=== PATIENT | female | born 1990 | race Caucasian/White ===

== ENCOUNTER → 2017-04-02 | Outpatient (CLI) | payer BC ==
[~2017-04-02] MED LIST: IBUP-1773 PO; PREN1TAB19 PO
--- NOTE | 2017-04-02 15:50 | Diagnostic Imaging Report ---
INDICATION: survey. TECHNIQUE: Multiple real-time grayscale images were obtained over the gravid uterus. COMPARISON: None FINDINGS: Cervix is nondilated measuring 5.7 cm in length. A fontenot gestation is in transverse position, the head to the maternal right. The posterior placenta appeared unremarkable. There was no abruption or previa. heart rate regular at 156 beats per minute. No pathological finding at the anatomical survey is apparent however positioning limits visualization of the spine and limits visualization of the cord insertion. Measurements correlate with an age 20 weeks 0 days, reflecting normal growth from prior. IMPRESSION: Fontenot gestation measuring 20 weeks 0 days, nondilated 5.7 cm length cervix with normal volume of amniotic fluid. No pathological finding revealed however anatomical survey limited owing to positioning, as described. Biometrical measurements are as follows: Biparietal 4.7 cm, age 20 weeks 1 days. Head circumference 17.4 cm, age 20 weeks 0 days. Abdominal circumference 14.6 cm, age 20 weeks 0 days. Femur length 3.2 cm, age 19 weeks 6 days. Sonographic estimate age: 20 weeks 0 days. Sonographic estimated date of delivery: 08/20/17. Estimated Weight: 319 gm (+/- 11 gm). LMP percentile: 39%. heart rate: 156 beats per minute. number: 1 of 1. Dictated by: Dictated on workstation # [id number]
== END ==
LOC: RAD 13:00
PROVIDERS: ATTEND Obstetrics & Gynecology
DX: Z36 Encounter for antenatal screening of mother (principal); Z3A.20 20 weeks gestation of pregnancy
CPT/HCPCS: 76805

== ENCOUNTER 2017-08-23 19:50 | Outpatient (CLI) | payer BC ==
[~2017-08-23] VITALS: Ht 157.5 cm; Wt 115.4 kg
[2017-08-23 20:00] VITALS: BP 134/87
[2017-08-23 20:24] LABS: BILIRUBIN,URINE NEGATIVE (NEGATIVE); KETONES,URINE 3+ (NEGATIVE); LEUKOCYTE ESTERASE ,URINE 1+ (NEGATIVE); NITRITE,URINE NEGATIVE (NEGATIVE); PH,URINE 6 (5-9); PROTEIN,URINE 2+ (NEGATIVE); UROBILINOGEN,URINE NORMAL (NORMAL)
[2017-08-23 20:46] LABS: SQUAMOUS EPITHELIAL CELL,UR 25-50 /HPF
--- NOTE | 2017-08-24 12:14 | Physician Query-Final Dx ---
OSCAR BE 08/24/17 1214: Clinic Account Progress/Dx Physician Query: Please give diagnosis Date of Service Aug 23, 2017 at 19:50 PRESTON BOWIE DO 08/24/17 2222: Clinic Account Progress/Dx DIAGNOSIS: Diagnosis Threatened labor at term Non stress test OSCAR BE Aug 24, 2017 12:14 PRESTON BOWIE DO Aug 24, 2017 22:22
== END 2017-08-23 20:45 | disposition home or self-care (01) ==
LOC: WSo 19:50 → LDRP 19:50 → WSo 20:03
PROVIDERS: ATTEND Obstetrics & Gynecology
DX: O47.1 False labor at or after 37 completed weeks of gestation (principal); Z3A.40 40 weeks gestation of pregnancy
CPT/HCPCS: 81000; 87088; 99212

== ENCOUNTER 2017-08-24 18:07 | Inpatient (IN) | payer BC ==
[2017-08-24] VITALS (24 sets, daily range): BP systolic 90–196; BP diastolic 55–91
[~2017-08-24] VITALS: Ht 157.5 cm; Wt 110.2 kg
[2017-08-24] MEDS ORDERED: D5 LR IV SOLUTION 1,000 ML IV SCH (18:19)
[2017-08-24] MEDS ORDERED: MINERAL OIL CONCENTRATE 99.9% 15 ML UDC TOP PRN (18:30)
[2017-08-24 18:35] LABS: BILIRUBIN,URINE NEGATIVE (NEGATIVE); KETONES,URINE 4+ (NEGATIVE); LEUKOCYTE ESTERASE ,URINE 1+ (NEGATIVE); NITRITE,URINE NEGATIVE (NEGATIVE); PH,URINE 6.5 (5-9); PROTEIN,URINE 2+ (NEGATIVE); UROBILINOGEN,URINE 1 MG/DL (NORMAL)
[2017-08-24 18:42] LABS: SQUAMOUS EPITHELIAL CELL,UR RARE /HPF
[2017-08-24 18:59] LABS: BASOPHILS % (AUTO) 0 % (0-10); EOSINOPHILS # (AUTO) 0.1 10^3/uL (0.0-0.3); EOSINOPHILS % (AUTO) 1 % (0-10); LYMPHOCYTES # (AUTO) 1.9 X 10^3 (1.0-4.0); LYMPHOCYTES % (AUTO) 16 % (12-44); MEAN CORPUSCULAR HEMOGLOBIN 26 PG (25-34); MEAN CORPUSCULAR HGB CONC 33 G/DL (32-36); MEAN CORPUSCULAR VOLUME 80 FL (80-99); MEAN PLATELET VOLUME 10.9 FL (7.4-10.4); MONOCYTES # (AUTO) 0.8 X 10^3 (0.0-1.0); MONOCYTES % (AUTO) 7 % (0-12); NEUTROPHILS # (AUTO) 9.3 X 10^3 (1.8-7.8); NEUTROPHILS % (AUTO) 76 % (42-75); PLATELET COUNT 260 10^3/uL (130-400); RED BLOOD COUNT 4.26 10^6/uL (4.35-5.85); RED CELL DISTRIBUTION WIDTH 15.9 % (10.0-14.5); WHITE BLOOD COUNT 12.1 10^3/uL (4.3-11.0)
[2017-08-24] MEDS ORDERED: INFLUENZA TRIvalent 2017-2018 0.5 ML/45 MCG SYR IM ONE (19:15)
[2017-08-24] MEDS ORDERED: LIDOCAINE/EPI 2% 1:200,00 (XYLOCAINE) 10 ML VIAL ONE (19:55)
[2017-08-24] MEDS ORDERED: SUFENTA 0.6MCG/ML BUPIVA 0.125 100 ML ONE (19:55)
[2017-08-24] MEDS ORDERED: fentaNYL INJECTION 100 MCG/2 ML AMP IVP PRN (20:00)
[2017-08-24] MEDS ORDERED: BUPIVACAINE 0.25% 30 ML (SENSORCAINE) VIAL ONE (20:34)
[2017-08-24] MEDS ORDERED: LACTATED RINGERS 1,000 ML IV ONE (21:19)
[2017-08-24] MEDS ORDERED: EPIDURAL (SUFENTA 0.6MCG/ML BUPIVA 0.125%) 100 ML BAG EPI SCH (21:30)
[2017-08-24] MEDS ORDERED: ONDANSETRON 4 MG/2 ML (SDV) Z0FRAN IV PRN (21:30)
[2017-08-24] MEDS ORDERED: NALOXONE 0.4 MG/ML 1 ML (NARCAN) VIAL IV PRN (21:30)
[2017-08-24] MEDS ORDERED: OXYTOCIN/NORMAL SALINE 500 ML IV ONE (21:31)
[2017-08-24] MEDS ORDERED: CATHETER FLUSH 10 ML SYR IV SCH (22:00)
[2017-08-24] MEDS ORDERED: OXYTOCIN/NORMAL SALINE 500 ML IV SCH (22:13)
[2017-08-24] MEDS ORDERED: MEASLES,MUMPS,RUBELLA 1 EA INJ SQ ONE (22:15)
[2017-08-24] MEDS ORDERED: DIBUCAINE (NUPERCAINAL) 1% OINT 30 GM TOP PRN (22:15)
[2017-08-24] MEDS ORDERED: TETANUS,DIPTH,PERTUSS P/F (BOOSTRIX) 0.5 ML VIAL IM ONE (22:15)
[2017-08-24] MEDS ORDERED: BENZOCAINE/MENTHOL (DERMOPLAST) 56 ML CAN TP PRN (22:15)
--- NOTE | 2017-08-24 22:18 | OB Labor & Delivery Record ---
Vag Delivery Note Vag Delivery Note Date of Delivery: 08/24/17 Preoperative Diagnosis: Anatoliy Clay is a 27 /Para 3/1 ,Gestational Age 40 4/7 weeks in labor Postoperative Diagnosis: Same Surgeon: PRESTON BOWIE Anesthesia: spinal Delivery Type: vaginal Findings: [] Viable female , apgars 9/9, weight pending Lacerations: perineal abrasion and anterior fornix abrasion, not repaired Intact placenta with 3 vessel cord. No nuchal cord, body cord or shoulder dystocia Estimated Blood Loss: 100 ml Complications: None Condition: Stable Description of Procedure: The patient is a 27 /Para 3/1 ,Gestational Age 40 4/7 weeks in labor. She was admitted and informed consent was obtained. Her labor course was remarkable for AROM at 10 cm. She progressed to complete dilatation and began to push. She was then set up for delivery. The infant's head was delivered atraumatically in the SONYA position. The shoulders and remainder of the infant's body were then delivered without difficulty. Upon delivery, the head was held below the level of the perineum and the mouth and nares were bulb suctioned. The cord was doubly clamped and cut and the infant was handed off to the pediatric staff. An intact placenta with 3-vessel cord delivered via Vandana and there was found to be minimal bleeding.~ Vigorous fundal massage was performed and the fundus was found to be firm. IV oxytocin was given. Examination of the vagina and perineum revealed a perineal abrasion not repaired. Following the delivery, sponge, instrument and needle counts were correct. Mom and baby were both in stable condition in the labor suite. Vitals - Labs Vital Signs - I&O Vital Signs Date Time Temp Pulse Resp B/P (MAP) Pulse Ox O2 Delivery O2 Flow Rate FiO2 08/24/17 18:00 97.2 101 18 137/70 Room Air Labs Laboratory Tests 08/24/17 18:10: Urine Color YELLOW, Urine Clarity CLEAR, Urine pH 6.5, Urine Specific [place] 1.015L, Urine Protein 2+H, Urine Glucose (UA) NEGATIVE, Urine Ketones 4+H, Urine Nitrite NEGATIVE, Urine Bilirubin NEGATIVE, Urine Urobilinogen 1, Urine Leukocyte Esterase 1+H, Urine RBC (Auto) NEGATIVE, Urine RBC NONE, Urine WBC 2-5 , Urine Squamous Epithelial Cells RARE, Urine Crystals NONE, Urine Bacteria NONE , Urine Casts NONE, Urine Mucus TRACE, Urine Culture Indicated NO 08/24/17 18:45: White Blood Count 12.1H, Red Blood Count 4.26L, Hemoglobin 11.1L, Hematocrit 34L , Mean Corpuscular Volume 80, Mean Corpuscular Hemoglobin 26, Mean Corpuscular Hemoglobin Concent 33, Red Cell Distribution Width 15.9H, Platelet Count 260, Mean Platelet Volume 10.9H, Neutrophils (%) (Auto) 76H, Lymphocytes (%) (Auto) 16, Monocytes (%) (Auto) 7, Eosinophils (%) (Auto) 1, Basophils (%) (Auto) 0, Neutrophils # (Auto) 9.3H, Lymphocytes # (Auto) 1.9, Monocytes # (Auto) 0.8, Eosinophils # (Auto) 0.1, Basophils # (Auto) 0.0 PRESTON BOWIE DO Aug 24, 2017 22:18
[2017-08-24] MEDS: IBUPROFEN 600 MG (MOTRIN) TAB PO SCH (22:21)
[2017-08-24] MEDS: ACETAMINOPHEN 500 MG TAB (TYLENOL) PO PRN (22:26)
[2017-08-24] MEDS: WITCH HAZEL(TUCKS) 40 EA JAR TOP PRN (23:45)
[2017-08-25 04:00] VITALS: BP 111/72
[2017-08-25] MEDS: IBUPROFEN 600 MG (MOTRIN) TAB PO SCH ×4 (04:00→23:28)
[2017-08-25] MEDS ORDERED: CATHETER FLUSH 10 ML SYR IV SCH (06:00)
[2017-08-25 07:21] LABS: BASOPHILS % (AUTO) 0 % (0-10); EOSINOPHILS % (AUTO) 0 % (0-10); LYMPHOCYTES % (AUTO) 15 % (12-44); MEAN CORPUSCULAR HEMOGLOBIN 26 PG (25-34); MEAN CORPUSCULAR HGB CONC 32 G/DL (32-36); MEAN CORPUSCULAR VOLUME 81 FL (80-99); MEAN PLATELET VOLUME 10.7 FL (7.4-10.4); MONOCYTES % (AUTO) 7 % (0-12); NEUTROPHILS # (AUTO) 10.9 X 10^3 (1.8-7.8); NEUTROPHILS % (AUTO) 78 % (42-75); PLATELET COUNT 226 10^3/uL (130-400); RED BLOOD COUNT 3.92 10^6/uL (4.35-5.85); RED CELL DISTRIBUTION WIDTH 15.7 % (10.0-14.5)
--- NOTE | 2017-08-25 07:54 | Postpartum Progress Note ---
Note Note Day # 1 s/p Subjective: Patient is without complaints. Ambulating, voiding. Tolerating a regular diet without nausea or vomiting. Normal lochia. Pain is well controlled with oral pain medications. breast feeding. Objective: Laboratory Tests Test 08/24/17 18:10 08/24/17 18:45 08/25/17 07:08 Range/Units Urine Color YELLOW Urine Clarity CLEAR Urine pH 6.5 5-9 Urine Specific [place] 1.015 L 1.016-1.022 Urine Protein 2+ H NEGATIVE Urine Glucose (UA) NEGATIVE NEGATIVE Urine Ketones 4+ H NEGATIVE Urine Nitrite NEGATIVE NEGATIVE Urine Bilirubin NEGATIVE NEGATIVE Urine Urobilinogen 1 NORMAL MG/DL Urine Leukocyte Esterase 1+ H NEGATIVE Urine RBC (Auto) NEGATIVE NEGATIVE Urine RBC NONE /HPF Urine WBC 2-5 /HPF Urine Squamous Epithelial Cells RARE /HPF Urine Crystals NONE /LPF Urine Bacteria NONE /HPF Urine Casts NONE /LPF Urine Mucus TRACE /LPF Urine Culture Indicated NO White Blood Count 12.1 H 14.0 H 4.3-11.0 10^3/uL Red Blood Count 4.26 L 3.92 L 4.35-5.85 10^6/uL Hemoglobin 11.1 L 10.2 L 11.5-16.0 G/DL Hematocrit 34 L 32 L 35-52 % Mean Corpuscular Volume 80 81 80-99 FL Mean Corpuscular Hemoglobin 26 26 25-34 PG Mean Corpuscular Hemoglobin Concent 33 32 32-36 G/DL Red Cell Distribution Width 15.9 H 15.7 H 10.0-14.5 % Platelet Count 260 226 130-400 10^3/uL Mean Platelet Volume 10.9 H 10.7 H 7.4-10.4 FL Neutrophils (%) (Auto) 76 H 78 H 42-75 % Lymphocytes (%) (Auto) 16 15 12-44 % Monocytes (%) (Auto) 7 7 0-12 % Eosinophils (%) (Auto) 1 0 0-10 % Basophils (%) (Auto) 0 0 0-10 % Neutrophils # (Auto) 9.3 H 10.9 H 1.8-7.8 X 10^3 Lymphocytes # (Auto) 1.9 2.0 1.0-4.0 X 10^3 Monocytes # (Auto) 0.8 1.0 0.0-1.0 X 10^3 Eosinophils # (Auto) 0.1 0.0 0.0-0.3 10^3/uL Basophils # (Auto) 0.0 0.0 0.0-0.1 10^3/uL Vital Sign - Last 12Hours 08/24/17 08/24/17 08/24/17 08/24/17 20:27 20:30 20:33 20:36 Pulse 110 85 96 79 Resp 18 B/P (MAP) 135/69 135/76 141/80 128/82 Pulse Ox 100 100 100 100 08/24/17 08/24/17 08/24/17 08/24/17 20:39 20:42 20:45 20:48 Pulse 96 83 108 100 B/P (MAP) 130/80 128/69 129/79 196/87 Pulse Ox 100 97 97 98 08/24/17 08/24/17 08/24/17 08/24/17 20:51 20:54 20:57 21:00 Pulse 105 100 103 111 Resp 18 B/P (MAP) 144/76 151/81 172/91 117/74 Pulse Ox 100 100 99 99 08/24/17 08/24/17 08/24/17 08/24/17 21:06 21:09 21:12 21:15 Pulse 109 103 86 86 Resp 18 B/P (MAP) 102/63 104/60 109/55 115/59 Pulse Ox 100 100 100 08/24/17 08/24/17 08/24/17 08/24/17 21:30 21:45 22:12 22:42 Temp 98.0 98.2 97.9 Pulse 97 95 101 93 Resp 18 B/P (MAP) 110/66 90/57 122/68 125/73 08/24/17 08/24/17 08/24/17 08/25/17 22:57 23:12 23:27 04:00 Temp 97.3 97.4 98.1 Pulse 87 85 90 80 Resp 18 B/P (MAP) 125/71 125/77 124/73 111/72 Pulse Ox 98 Physical Exam: General - Alert and oriented, no apparent distress Abdomen - Soft, appropriately tender to palpation, non-distended, fundus firm at umbilicus Extremities - no edema, negative Jeanie's bilaterally Assessment: 1. post- day # 1, status post spontaneous vaginal delivery. Recovering well, hemodynamically stable 2. Acute blood loss anemia -stable Plan: Routine care. Encourage breast feeding. Encourage ambulation. Ferrous sulfate supplementation. Plan for discharge tomorrow Vitals - Labs Vital Signs - I&O Vital Signs Date Time Temp Pulse Resp B/P (MAP) Pulse Ox O2 Delivery O2 Flow Rate FiO2 08/25/17 04:00 98.1 80 18 111/72 98 08/24/17 23:27 97.4 90 124/73 08/24/17 23:12 85 125/77 08/24/17 22:57 97.3 87 125/71 08/24/17 22:42 97.9 93 125/73 08/24/17 22:12 98.2 101 122/68 08/24/17 21:45 95 90/57 08/24/17 21:30 98.0 97 18 110/66 08/24/17 21:15 86 18 115/59 100 08/24/17 21:12 86 109/55 08/24/17 21:09 103 104/60 100 08/24/17 21:06 109 102/63 100 08/24/17 21:00 111 18 117/74 99 08/24/17 20:57 103 172/91 99 08/24/17 20:54 100 151/81 100 08/24/17 20:51 105 144/76 100 08/24/17 20:48 100 196/87 98 08/24/17 20:45 108 129/79 97 08/24/17 20:42 83 128/69 97 08/24/17 20:39 96 130/80 100 08/24/17 20:36 79 128/82 100 08/24/17 20:33 96 141/80 100 08/24/17 20:30 85 18 135/76 100 08/24/17 20:27 110 135/69 100 08/24/17 19:30 97.6 08/24/17 18:00 97.2 101 18 137/70 Room Air Labs Laboratory Tests 08/24/17 18:10: Urine Color YELLOW, Urine Clarity CLEAR, Urine pH 6.5, Urine Specific [place] 1.015L, Urine Protein 2+H, Urine Glucose (UA) NEGATIVE, Urine Ketones 4+H, Urine Nitrite NEGATIVE, Urine Bilirubin NEGATIVE, Urine Urobilinogen 1, Urine Leukocyte Esterase 1+H, Urine RBC (Auto) NEGATIVE, Urine RBC NONE, Urine WBC 2-5 , Urine Squamous Epithelial Cells RARE, Urine Crystals NONE, Urine Bacteria NONE , Urine Casts NONE, Urine Mucus TRACE, Urine Culture Indicated NO 08/24/17 18:45: White Blood Count 12.1H, Red Blood Count 4.26L, Hemoglobin 11.1L, Hematocrit 34L , Mean Corpuscular Volume 80, Mean Corpuscular Hemoglobin 26, Mean Corpuscular Hemoglobin Concent 33, Red Cell Distribution Width 15.9H, Platelet Count 260, Mean Platelet Volume 10.9H, Neutrophils (%) (Auto) 76H, Lymphocytes (%) (Auto) 16, Monocytes (%) (Auto) 7, Eosinophils (%) (Auto) 1, Basophils (%) (Auto) 0, Neutrophils # (Auto) 9.3H, Lymphocytes # (Auto) 1.9, Monocytes # (Auto) 0.8, Eosinophils # (Auto) 0.1, Basophils # (Auto) 0.0 08/25/17 07:08: White Blood Count 14.0H, Red Blood Count 3.92L, Hemoglobin 10.2L, Hematocrit 32L , Mean Corpuscular Volume 81, Mean Corpuscular Hemoglobin 26, Mean Corpuscular Hemoglobin Concent 32, Red Cell Distribution Width 15.7H, Platelet Count 226, Mean Platelet Volume 10.7H, Neutrophils (%) (Auto) 78H, Lymphocytes (%) (Auto) 15, Monocytes (%) (Auto) 7, Eosinophils (%) (Auto) 0, Basophils (%) (Auto) 0, Neutrophils # (Auto) 10.9H, Lymphocytes # (Auto) 2.0, Monocytes # (Auto) 1.0, Eosinophils # (Auto) 0.0, Basophils # (Auto) 0.0 PRESTON BOWIE DO Aug 25, 2017 07:54
[2017-08-25] MEDS ORDERED: FERR-74 PO (08:01)
[2017-08-25] MEDS ORDERED: IBUP-1773 PO (08:01)
[2017-08-25] MEDS ORDERED: ACET-77 PO (08:01)
--- NOTE | 2017-08-25 08:03 | Discharge Inst-Women's Service ---
Discharge Inst-Women's Serv Depart Medication/Instructions New, Converted or Re-Newed RX: Call to Patients Pharmacy Instructions NOTHING IN VAGINA FOR 6 WEEKS Final Diagnosis LABOR MILD ANTEPARTUM AND ACUTE BLOOD LOSS ANEMIA Consults/Follow Up Additional Follow Up: Yes (6 WEEKS WITH AZEB/SIL) Activity Activity: Activity as Tolerated Driving Instructions: You May Drive NO SMOKING: NO SMOKING Nothing Inside Vagina: No Douching, No [place], No Tampons Diet Discharge Diet: No Restrictions Symptoms to Report to : Pain Increased, Fever Over 101 Degrees F, Vaginal Bleeding Increase, Cramps in Feet or Legs, Vaginal Discharge Foul For Any Problems or Questions: Contact Your Physician PRESTON BOWIE DO Aug 25, 2017 8:02 am
[2017-08-25] MEDS ORDERED: MEASLES,MUMPS,RUBELLA 1 EA INJ ONE (08:34)
[2017-08-25] MEDS ORDERED: TETANUS,DIPTH,PERTUSS P/F (BOOSTRIX) 0.5 ML VIAL IM ONE (08:34)
[2017-08-25 08:56] VITALS: BP 113/73
[2017-08-25] MEDS: PRENATAL VITAMIN 1 EA TAB PO SCH (08:58)
[2017-08-25] MEDS: DOCUSATE SODIUM 100 MG (COLACE) CAP PO SCH ×2 (08:58→21:24)
[2017-08-25] MEDS: FERROUS SULF 325 MG (IRON) TAB PO SCH (08:58)
[2017-08-25 13:46] VITALS: BP 112/69
--- NOTE | 2017-08-25 14:30 | Anesthesia-Regional Post-Op ---
Regional Patient Condition Mental Status: Alert, Oriented x3 Circulation: Same as Pre-Op Headache: Absent Sensation: Full Recovery Motor Block: Absent Post Op Complications Complications None Follow Up Care/Instructions Patient Instructions None needed. Anesthesia/Patient Condition Patient is doing well, no complaints, stable vital signs, no apparent adverse anesthesia problems. No complications reported per nursing. SHANTE WOOD CRNA Aug 25, 2017 14:30
[2017-08-25 16:50] VITALS: BP 116/77
[2017-08-25 20:00] VITALS: BP 116/75
[2017-08-26 02:00] VITALS: BP 116/66
[2017-08-26] MEDS: ACETAMINOPHEN 500 MG TAB (TYLENOL) PO PRN (03:17)
[2017-08-26] MEDS: PRENATAL VITAMIN 1 EA TAB PO SCH (06:02)
[2017-08-26] MEDS: IBUPROFEN 600 MG (MOTRIN) TAB PO SCH ×2 (06:02→12:42)
--- NOTE | 2017-08-26 08:24 | Postpartum Progress Note ---
Note Note Day # 2 Subjective: Patient is without complaints. Ambulating, voiding. Tolerating a regular diet without nausea or vomiting. Normal lochia. Pain is well controlled with oral pain medications. breast feeding Objective: Vital Sign - Last 12Hours 08/26/17 02:00 Temp 98.7 Pulse 84 Resp 18 B/P (MAP) 116/66 Pulse Ox 98 O2 Delivery Room Air Physical Exam: General - Alert and oriented, no apparent distress Abdomen - Soft, appropriately tender to palpation, non-distended, fundus firm at umbilicus Extremities - no edema, negative Jeanie's bilaterally Assessment: 1. post- day # 2, status post spontaneous vaginal delivery. Recovering well, hemodynamically stable 2. Acute blood loss anemia Plan: Routine care. Encourage breast feeding. Encourage ambulation. Ferrous sulfate supplementation. Plan for discharge today Vitals - Labs Vital Signs - I&O Vital Signs Date Time Temp Pulse Resp B/P (MAP) Pulse Ox O2 Delivery O2 Flow Rate FiO2 08/26/17 02:00 98.7 84 18 116/66 98 Room Air 08/25/17 20:00 99.5 88 17 116/75 97 Room Air 08/25/17 16:50 97.7 90 16 116/77 98 Room Air 08/25/17 13:46 97.6 85 18 112/69 97 Room Air 08/25/17 08:56 98.0 90 18 113/73 97 Room Air Labs Microbiology 08/24/17 Urine Culture - Preliminary, Resulted NO GROWTH PRESTON BOWIE DO Aug 26, 2017 08:24
[2017-08-26 09:30] VITALS: BP 118/78
[2017-08-26] MEDS: FERROUS SULF 325 MG (IRON) TAB PO SCH (09:30)
[2017-08-26] MEDS: DOCUSATE SODIUM 100 MG (COLACE) CAP PO SCH (09:30)
[2017-08-26 12:43] VITALS: BP 125/81
[2017-08-26] MEDS: WITCH HAZEL(TUCKS) 40 EA JAR TOP PRN (12:47)
[2017-08-26 13:30] VITALS: BP 125/81
== END 2017-08-26 13:30 | disposition home or self-care (01) | DRG 775 ==
LOC: WSo 18:07 → LDRP 18:07 → WSo 18:10 → LDRP 18:10
PROVIDERS: ADMIT Obstetrics & Gynecology; ATTEND Obstetrics & Gynecology
PROC: 10E0XZZ Delivery of Products of Conception, External Approach (ICD-10-PCS; principal; 2017-08-24)
DX: O48.0 Post-term pregnancy (principal); O99.013 Anemia complicating pregnancy, third trimester; D64.9 Anemia, unspecified; Z3A.40 40 weeks gestation of pregnancy; Z37.0 Single live birth
CPT/HCPCS: 36415; 81000; 85025; 87088; 90707; 90715; 99212

== ENCOUNTER → 2019-05-25 | Outpatient (CLI) | payer OTHER, MEDICAID ==
[~2019-05-25] MED LIST changes: +ACET-77 PO; +FERR325T18 PO
--- NOTE | 2019-05-25 16:36 | Diagnostic Imaging Report ---
INDICATION: , anatomic survey, gestational age of 20 weeks and 2 days. TECHNIQUE: Multiple real-time grayscale images were obtained over the gravid uterus. COMPARISON: None. FINDINGS: There is a single live intrauterine gestation in cephalic presentation. The placenta is anterior without evidence of previa. heart rate measures 136 bpm. Amniotic fluid appears subjectively normal. The cervix measures 4.0 cm, without funneling. The stomach is seen. The cervix measures 4.0 cm, without funneling. The kidneys are seen. The cord insertion is seen. A four-chambered heart is seen. The intracranial ventricles are seen. The cisterna magna is seen and the cerebellum is seen. The upper and lower spine is seen. The bladder is seen. Two uterine arteries are seen demonstrating a three-vessel cord. The maternal adnexa are not seen. Biometrical measurements are as follows: Biparietal 4.67 cm, age 20 weeks 1 day. Head circumference 17.01 cm, age 19 weeks 5 days. Abdominal circumference 15.67 cm, age 20 weeks 6 days. Femur length 3.07 cm, age 19 weeks 4 days. Sonographic estimate age: 20 weeks 1 day. Sonographic estimated date of delivery: 10/11/2019. Estimated Weight: 336 gm (+/- 49 gm). LMP percentile: 46%. heart rate: 136 beats per minute. number: One of one. IMPRESSION: 1. Single live intrauterine gestation measuring at 20 weeks and 1 day, which is within range of the clinical dates. heart rate and amniotic fluid appear normal. 2. Anatomic survey given above. No abnormalities are seen. Dictated by: Dictated on workstation # [id number]
== END ==
LOC: RAD 14:43
PROVIDERS: ATTEND Obstetrics & Gynecology
DX: Z34.92 Encounter for supervision of normal pregnancy, unspecified, second trimester (principal); Z3A.20 20 weeks gestation of pregnancy
CPT/HCPCS: 76805

== ENCOUNTER 2019-10-04 08:09 | Inpatient (IN) | payer OTHER, MEDICAID ==
[2019-10-04] VITALS (26 sets, daily range): BP systolic 94–140; BP diastolic 51–78
[~2019-10-04] VITALS: Ht 157.5 cm; Wt 107.2 kg
--- NOTE | 2019-10-04 08:09 | NUR ---
LAUREN ACOSTA presented to unit from home, accompanied by Significant Other, with c/o INDUCTION. LAUREN ACOSTA weighed, gowned, voided, and to bed. EFHM and TOCO applied, VS taken. LAUREN ACOSTA oriented to bed controls, call light, TV, heat, and A/C controls.
[2019-10-04] MEDS ORDERED: OXYTOCIN/NORMAL SALINE 500 ML IV SCH (08:19)
[2019-10-04] MEDS ORDERED: D5 LR IV SOLUTION 1,000 ML IV SCH (08:19)
[2019-10-04] MEDS ORDERED: MINERAL OIL CONCENTRATE 99.9% 15 ML UDC TOP PRN (08:30)
[2019-10-04 08:50] LABS: BASOPHILS % (AUTO) 0 % (0-10); EOSINOPHILS # (AUTO) 0.1 10^3/uL (0.0-0.3); EOSINOPHILS % (AUTO) 1 % (0-10); HEMATOCRIT 29 % (35-52); HEMOGLOBIN 9.1 G/DL (11.5-16.0); LYMPHOCYTES # (AUTO) 1.8 X 10^3 (1.0-4.0); LYMPHOCYTES % (AUTO) 20 % (12-44); MEAN CORPUSCULAR HEMOGLOBIN 23 PG (25-34); MEAN CORPUSCULAR HGB CONC 31 G/DL (32-36); MEAN CORPUSCULAR VOLUME 75 FL (80-99); MEAN PLATELET VOLUME 10.3 FL (7.4-10.4); MONOCYTES # (AUTO) 0.5 X 10^3 (0.0-1.0); MONOCYTES % (AUTO) 6 % (0-12); NEUTROPHILS # (AUTO) 6.5 X 10^3 (1.8-7.8); NEUTROPHILS % (AUTO) 73 % (42-75); PLATELET COUNT 266 10^3/uL (130-400); RED CELL DISTRIBUTION WIDTH 16.1 % (10.0-14.5)
[2019-10-04] MEDS: LACTATED RINGERS 1,000 ML IV SCH ×2 (08:50→14:46)
[2019-10-04 08:51] LABS: BILIRUBIN,URINE NEGATIVE (NEGATIVE); CLARITY,URINE CLEAR; COLOR,URINE YELLOW; GLUCOSE, URINE (UA) NEGATIVE (NEGATIVE); KETONES,URINE NEGATIVE (NEGATIVE); LEUKOCYTE ESTERASE ,URINE NEGATIVE (NEGATIVE); NITRITE,URINE NEGATIVE (NEGATIVE); PROTEIN,URINE 2+ (NEGATIVE)
[2019-10-04 09:00] LABS: BACTERIA,URINE TRACE /HPF
[2019-10-04] MEDS ORDERED: MISOPROSTOL 100 MCG (CYTOTEC) TAB PO ONE (09:30)
[2019-10-04] MEDS: CATHETER FLUSH 10 ML SYR IV SCH ×2 (11:54→16:30)
[2019-10-04] MEDS ORDERED: MISOPROSTOL 100 MCG (CYTOTEC) TAB PO SCH (13:30)
[2019-10-04] MEDS ORDERED: SUFENTA 0.6MCG/ML BUPIVA 0.125 100 ML ONE (14:44)
--- NOTE | 2019-10-04 15:16 | NUR ---
Emily Sam CRNA here for epidural placement. Procedure explained, consent reviewed and signed by anesthesia. Questions answered to patient's satisfaction. Time out taken to verify correct patient/procedure. Patient up to side of bed, assisted into sitting position. Betadine prep done x3 and sterile drape applied. Local done, see anesthesia record. Test dose given, see anesthesia record for drug and dosage. Epidural catheter secured in place. Epidural placement complete. Assisted back into bed, monitors adjusted. Epidural dosed, see anesthesia record. Epidural of Sufenta/Bupivicaine @12 cc/hr stated per pump. Patient tolerated procedure well.
[2019-10-04] MEDS ORDERED: LACTATED RINGERS 1,000 ML IV SCH (15:34)
[2019-10-04] MEDS ORDERED: diphenhydrAMINE 50 MG/ML INJ (BENADRYL) IV PRN (15:45)
[2019-10-04] MEDS ORDERED: ONDANSETRON 4 MG/2 ML (SDV) Z0FRAN IV PRN (15:45)
[2019-10-04] MEDS ORDERED: NALOXONE 0.4 MG/ML 1 ML (NARCAN) VIAL IV PRN ×2 (15:45)
[2019-10-04] MEDS ORDERED: EPIDURAL (SUFENTA 0.6MCG/ML BUPIVA 0.125%) 100 ML BAG EPI SCH (15:45)
[2019-10-04] MEDS ORDERED: METOCLOPRAMIDE INJ 10 MG/2 ML (REGLAN) IV PRN (15:45)
[2019-10-04] MEDS ORDERED: LIDOCAINE/EPI 2% 1:200,00 (XYLOCAINE) 10 ML VIAL ONE (16:04)
[2019-10-04] MEDS: OXYTOCIN/NORMAL SALINE 500 ML IV SCH ×2 (16:49→17:27)
--- NOTE | 2019-10-04 17:04 | OB Labor & Delivery Record ---
Vag Delivery Note Vag Delivery Note Date of Delivery: 10/04/19 Preoperative Diagnosis: Anatoliy Clay is a 29 /Para 3/2, Gestational Age 39 1/7 weeks, induction due to preeclampsia Postoperative Diagnosis: Same Surgeon: PRESTON BOWIE Anesthesia: epidural Delivery Type: Findings: Viable female infant, apgars 8/9, weight pending Lacerations: none Intact placenta with 3 vessel cord. Nuchal cord x 2 delivered through. No body cord or shoulder dystocia Estimated Blood Loss: 150 ml Complications: None Condition: Stable Description of Procedure: The patient is a 29 /Para 3/2, Gestational Age 39 1/7 weeks, induction due to preeclampsia.. She was admitted and informed consent was obtained. Her labor course was remarkable for misoprostol x 1, AROM and epidural. She progressed to complete dilatation and began to push. She was then set up for delivery. The 's head was delivered atraumatically in the RYAN position. The shoulders and remainder of the 's body were then delivered without difficulty. Upon delivery, the head was held below the level of the perineum and the mouth and nares were bulb suctioned. The cord was doubly clamped and cut and the infant was handed off to the pediatric staff. An intact placenta with 3-vessel cord delivered via Vandana and there was found to be minimal bleeding.~ Vigorous fundal massage was performed and the fundus was found to be firm. IV oxytocin was given. Examination of the vagina and perineum revealed no laceration. Following the delivery, sponge, instrument and needle counts were correct. Mom and baby were both in stable condition in the labor suite. Vitals - Labs Vital Signs - I&O Vital Signs Date Time Temp Pulse Resp B/P (MAP) Pulse Ox O2 Delivery O2 Flow Rate FiO2 10/04/19 15:30 36.7 91 18 140/65 (90) 100 Room Air 10/04/19 15:26 82 18 132/63 (86) 100 Room Air 10/04/19 15:24 84 18 121/57 (78) 100 Room Air 10/04/19 15:22 97 18 136/66 (89) 100 Room Air 10/04/19 15:16 92 18 119/78 (92) 100 Room Air 10/04/19 14:15 36.9 75 18 117/61 (79) Room Air 10/04/19 13:45 36.6 74 18 118/68 (85) Room Air 10/04/19 13:15 69 18 112/61 (78) Room Air 10/04/19 12:45 36.7 80 18 99/52 (68) Room Air 10/04/19 12:15 75 18 103/55 (71) Room Air 10/04/19 10:00 146 18 106/58 (74) Room Air 10/04/19 09:30 82 18 106/68 (81) Room Air 10/04/19 09:00 81 18 105/55 (72) Room Air 10/04/19 08:24 36.8 82 18 98 Room Air 10/04/19 08:24 36.8 82 18 116/63 (80) 98 Room Air Labs Laboratory Tests 10/04/19 08:10: Urine Color YELLOW, Urine Clarity CLEAR, Urine pH 7.0, Urine Specific [place] 1.025H, Urine Protein 2+H, Urine Glucose (UA) NEGATIVE, Urine Ketones NEGATIVE, Urine Nitrite NEGATIVE, Urine Bilirubin NEGATIVE, Urine Urobilinogen 0.2, Urine Leukocyte Esterase NEGATIVE, Urine RBC (Auto) 1+H, Urine RBC 2-5H, Urine WBC NONE, Urine Squamous Epithelial Cells 10-25H, Urine Crystals NONE, Urine Bacteria TRACE, Urine Casts NONE, Urine Mucus NEGATIVE, Urine Culture Indicated NO 10/04/19 08:30: White Blood Count 9.0, Red Blood Count 3.89L, Hemoglobin 9.1L, Hematocrit 29L, Mean Corpuscular Volume 75L, Mean Corpuscular Hemoglobin 23L, Mean Corpuscular Hemoglobin Concent 31L, Red Cell Distribution Width 16.1H, Platelet Count 266, Mean Platelet Volume 10.3, Neutrophils (%) (Auto) 73, Lymphocytes (%) (Auto) 20, Monocytes (%) (Auto) 6, Eosinophils (%) (Auto) 1, Basophils (%) (Auto) 0, Neutrophils # (Auto) 6.5, Lymphocytes # (Auto) 1.8, Monocytes # (Auto) 0.5, Eosinophils # (Auto) 0.1, Basophils # (Auto) 0.0 PRESTON BOWIE DO Oct 04, 2019 17:04
[2019-10-04] MEDS ORDERED: IBUP-844 PO (17:11)
[2019-10-04] MEDS ORDERED: ACET-93 PO (17:11)
[2019-10-04] MEDS ORDERED: FERR325T18 PO (17:11)
--- NOTE | 2019-10-04 17:13 | Discharge Inst-Women's Service ---
Discharge Inst-Women's Serv Depart Medication/Instructions New, Converted or Re-Newed RX: RX on Chart Final Diagnosis preeclampsia 39 week gestation vaginal delivery iron deficiency anemia Problems Reviewed?: Yes Consults/Follow Up Additional Follow Up: Yes (6 weeks for pp exam) Activity Activity: Activity as Tolerated Driving Instructions: You May Drive NO SMOKING: NO SMOKING Nothing Inside Vagina: No Douching, No [place], No Tampons Diet Discharge Diet: No Restrictions Symptoms to Report to : Bleeding Excessive, Eyesight Changes, Urine Color Change, Fever Over 101 Degrees F, Vaginal Bleeding Increase, Cramps in Feet or Legs, Vaginal Discharge Foul For Any Problems or Questions: Contact Your Physician PRESTON BOWIE DO Oct 04, 2019 17:13
[2019-10-04] MEDS ORDERED: TETANUS,DIPTH,PERTUSS P/F (BOOSTRIX) 0.5 ML VIAL IM ONE (17:15)
[2019-10-04] MEDS ORDERED: BENZOCAINE/MENTHOL (DERMOPLAST) 56 ML CAN TP PRN (17:15)
[2019-10-04] MEDS ORDERED: MEASLES,MUMPS,RUBELLA 1 EA INJ SQ ONE (17:15)
[2019-10-04] MEDS ORDERED: WITCH HAZEL(TUCKS) 40 EA JAR TOP PRN (17:15)
[2019-10-04] MEDS ORDERED: IBUPROFEN 600 MG (MOTRIN) TAB PO ONE (17:42)
[2019-10-04] MEDS: IBUPROFEN 600 MG (MOTRIN) TAB PO SCH ×2 (17:50→23:40)
--- NOTE | 2019-10-04 19:15 | NUR ---
Report to Tony Ross RN.
--- NOTE | 2019-10-04 19:25 | NUR ---
Fundus firm U/1 with small rubra lochia noted. Pericare completed and clean pad and panties applied.
[2019-10-04] MEDS: ACETAMINOPHEN 500 MG TAB (TYLENOL) PO SCH (21:41)
[2019-10-04] MEDS: DOCUSATE SODIUM 100 MG (COLACE) CAP PO SCH (21:41)
[2019-10-04] MEDS ORDERED: CATHETER FLUSH 10 ML SYR IV SCH (22:00)
[2019-10-05 03:05] VITALS: BP 116/72
[2019-10-05] MEDS: IBUPROFEN 600 MG (MOTRIN) TAB PO SCH ×2 (06:29→12:47)
[2019-10-05] MEDS: ACETAMINOPHEN 500 MG TAB (TYLENOL) PO SCH (06:29)
[2019-10-05 06:30] VITALS: BP 112/55
[2019-10-05 06:46] LABS: BASOPHILS % (AUTO) 0 % (0-10); EOSINOPHILS # (AUTO) 0.1 10^3/uL (0.0-0.3); EOSINOPHILS % (AUTO) 1 % (0-10); HEMATOCRIT 28 % (35-52); HEMOGLOBIN 8.6 G/DL (11.5-16.0); LYMPHOCYTES # (AUTO) 2.1 X 10^3 (1.0-4.0); LYMPHOCYTES % (AUTO) 21 % (12-44); MEAN CORPUSCULAR HEMOGLOBIN 23 PG (25-34); MEAN CORPUSCULAR HGB CONC 31 G/DL (32-36); MEAN CORPUSCULAR VOLUME 76 FL (80-99); MEAN PLATELET VOLUME 10.7 FL (7.4-10.4); MONOCYTES # (AUTO) 0.8 X 10^3 (0.0-1.0); MONOCYTES % (AUTO) 8 % (0-12); NEUTROPHILS # (AUTO) 7.2 X 10^3 (1.8-7.8); NEUTROPHILS % (AUTO) 71 % (42-75); PLATELET COUNT 241 10^3/uL (130-400); RED CELL DISTRIBUTION WIDTH 15.9 % (10.0-14.5); WHITE BLOOD COUNT 10.2 10^3/uL (4.3-11.0)
[2019-10-05] MEDS ORDERED: PRENATAL VITAMIN 1 EA TAB PO SCH (07:00)
[2019-10-05] MEDS ORDERED: FERROUS SULF 325 MG (IRON) TAB PO SCH (09:00)
[2019-10-05 09:35] VITALS: BP 124/70
[2019-10-05] MEDS: DOCUSATE SODIUM 100 MG (COLACE) CAP PO SCH (09:35)
--- NOTE | 2019-10-05 09:35 | NUR ---
AM shift assessment completed and vital signs obtained, see interventions. Plan of care reviewed with patient. Patient verbalizes understanding and questions answered. Scheduled PNV, Colace, and Iron PO given. TDAP administered, see EMAR. VIS provided. Saline lock DC'd, tip intact. Shower supplies provided.
--- NOTE | 2019-10-05 10:02 | Postpartum Progress Note ---
Note Note Day # 1 s/p Subjective: Patient is without complaints. Ambulating, voiding. Tolerating a regular diet without nausea or vomiting. Normal lochia. Pain is well controlled with oral pain medications. breast feeding. Objective: 10/04/19 10/05/19 10/05/19 23:00 03:05 06:30 Temp 36.8 36.9 36.4 Pulse 73 78 70 Resp 16 20 18 B/P (MAP) 104/53 (70) 116/72 (87) 112/55 (74) Pulse Ox 98 98 99 O2 Delivery Room Air Room Air Room Air 10/05/19 00:00 Intake Total 3000 ml Balance 3000 ml Laboratory Tests Test 10/05/19 06:05 Range/Units White Blood Count 10.2 4.3-11.0 10^3/uL Red Blood Count 3.67 L 4.35-5.85 10^6/uL Hemoglobin 8.6 L 11.5-16.0 G/DL Hematocrit 28 L 35-52 % Mean Corpuscular Volume 76 L 80-99 FL Mean Corpuscular Hemoglobin 23 L 25-34 PG Mean Corpuscular Hemoglobin Concent 31 L 32-36 G/DL Red Cell Distribution Width 15.9 H 10.0-14.5 % Platelet Count 241 130-400 10^3/uL Mean Platelet Volume 10.7 H 7.4-10.4 FL Neutrophils (%) (Auto) 71 42-75 % Lymphocytes (%) (Auto) 21 12-44 % Monocytes (%) (Auto) 8 0-12 % Eosinophils (%) (Auto) 1 0-10 % Basophils (%) (Auto) 0 0-10 % Neutrophils # (Auto) 7.2 1.8-7.8 X 10^3 Lymphocytes # (Auto) 2.1 1.0-4.0 X 10^3 Monocytes # (Auto) 0.8 0.0-1.0 X 10^3 Eosinophils # (Auto) 0.1 0.0-0.3 10^3/uL Basophils # (Auto) 0.0 0.0-0.1 10^3/uL Physical Exam: General - Alert and oriented, no apparent distress Abdomen - Soft, appropriately tender to palpation, non-distended, fundus firm at umbilicus Extremities - no edema, negative Jeanie's bilaterally [] Assessment: 1. post- day # a, status post spontaneous vaginal delivery. Recovering well, hemodynamically stable Plan: Routine care. Encourage breast feeding. Encourage ambulation. Ferrous sulfate supplementation. Plan for discharge Vitals - Labs Vital Signs - I&O Vital Signs Date Time Temp Pulse Resp B/P (MAP) Pulse Ox O2 Delivery O2 Flow Rate FiO2 10/05/19 06:30 36.4 70 18 112/55 (74) 99 Room Air 10/05/19 03:05 36.9 78 20 116/72 (87) 98 Room Air 10/04/19 23:00 36.8 73 16 104/53 (70) 98 Room Air 10/04/19 18:40 36.6 76 18 94/55 (68) Room Air 10/04/19 18:25 72 18 95/51 (66) Room Air 10/04/19 18:10 73 18 106/58 (74) Room Air 10/04/19 17:55 73 18 105/58 (74) Room Air 10/04/19 17:40 36.4 73 18 102/57 (72) Room Air 10/04/19 17:25 73 18 112/60 (77) Room Air 10/04/19 17:10 76 18 113/56 (75) Room Air 10/04/19 17:00 36.8 10/04/19 16:45 74 18 100 Room Air 10/04/19 16:30 65 18 115/57 (76) 100 Non Rebreather 15.00 10/04/19 16:15 63 18 116/65 (82) 100 Room Air 10/04/19 16:00 78 18 121/67 (85) 100 Room Air 10/04/19 15:45 83 18 115/59 (77) 100 Room Air 10/04/19 15:30 36.7 91 18 140/65 (90) 100 Room Air 10/04/19 15:26 82 18 132/63 (86) 100 Room Air 10/04/19 15:24 84 18 121/57 (78) 100 Room Air 10/04/19 15:22 97 18 136/66 (89) 100 Room Air 10/04/19 15:16 92 18 119/78 (92) 100 Room Air 10/04/19 14:15 36.9 75 18 117/61 (79) Room Air 10/04/19 13:45 36.6 74 18 118/68 (85) Room Air 10/04/19 13:15 69 18 112/61 (78) Room Air 10/04/19 12:45 36.7 80 18 99/52 (68) Room Air 10/04/19 12:15 75 18 103/55 (71) Room Air I & O 10/05/19 07:00 Intake Total 4000 ml Balance 4000 ml Labs Laboratory Tests 10/05/19 06:05: White Blood Count 10.2, Red Blood Count 3.67L, Hemoglobin 8.6L, Hematocrit 28L, Mean Corpuscular Volume 76L, Mean Corpuscular Hemoglobin 23L, Mean Corpuscular Hemoglobin Concent 31L, Red Cell Distribution Width 15.9H, Platelet Count 241, Mean Platelet Volume 10.7H, Neutrophils (%) (Auto) 71, Lymphocytes (%) (Auto) 21, Monocytes (%) (Auto) 8, Eosinophils (%) (Auto) 1, Basophils (%) (Auto) 0, Neutrophils # (Auto) 7.2, Lymphocytes # (Auto) 2.1, Monocytes # (Auto) 0.8, Eosinophils # (Auto) 0.1, Basophils # (Auto) 0.0 PRESTON BOWIE DO Oct 05, 2019 10:01
[2019-10-05 12:47] VITALS: BP 103/53
--- NOTE | 2019-10-05 14:40 | NUR ---
Rhogam administered in patient's right hip. Band aid applied to site.
--- NOTE | 2019-10-05 17:28 | Anesthesia-Regional Post-Op ---
Regional Patient Condition Mental Status: Alert, Oriented x3 Circulation: Same as Pre-Op Headache: Absent Sensation: Full Recovery Motor Block: Absent Post Op Complications Complications None Follow Up Care/Instructions Patient Instructions None needed. Anesthesia/Patient Condition Patient is doing well, no complaints, stable vital signs, no apparent adverse anesthesia problems. No complications reported per nursing. CLAIRE MONTANA CRNA Oct 05, 2019 17:28
--- NOTE | 2019-10-05 18:01 | NUR ---
Discharge instructions and medications reviewed with patient both written and verbally. Patient verbalizes understanding and questions answered. Prescriptions previously called into pharmacy of patient's choice.
--- NOTE | 2019-10-05 18:35 | NUR ---
Patient discharged at this time and ambulated down to awaiting private vehicle accompanied by this RN. No signs or symptoms of distress noted.
== END 2019-10-05 18:35 | disposition home or self-care (01) | DRG 807 ==
LOC: LDRP 08:09
PROVIDERS: ADMIT Obstetrics & Gynecology; ATTEND Obstetrics & Gynecology
PROC: 10E0XZZ Delivery of Products of Conception, External Approach (ICD-10-PCS; principal; 2019-10-04)
PROC: 3E0DXGC Introduction of Other Therapeutic Substance into Mouth and Pharynx, External Approach (ICD-10-PCS; 2019-10-04)
DX: O14.94 Unspecified pre-eclampsia, complicating childbirth (principal); O69.81X0 Labor and delivery complicated by cord around neck, without compression, not applicable or unspecified; O99.214 Obesity complicating childbirth; E66.01 Morbid (severe) obesity due to excess calories; Z3A.39 39 weeks gestation of pregnancy; Z37.0 Single live birth
CPT/HCPCS: 36415; 81000; 83033; 85025; 86850; 86900; 86901; 90715

== ENCOUNTER → 2020-08-08 | Outpatient (CLI) | payer OTHER, MEDICAID ==
[~2020-08-08] MED LIST changes: -ACET-77 PO; +ACET-78 PO; +ACET-93 PO; +IBUP-844 PO
--- NOTE | 2020-08-08 16:19 | Diagnostic Imaging Report ---
PROCEDURE: US OB SINGLE FETUS <14 WKS. TECHNIQUE: Multiple real-time grayscale images were obtained over the gravid uterus in various projections. INDICATION: Elevated hCG levels. Patient is 10 months . FINDINGS: Uterus measures 10.0 x 7.0 x 6.6 cm. There is intrauterine gestational sac containing a pole consistent with 6 weeks 5 days gestation. heart rate was recorded at 89 bpm. No ananya-gestational sac hemorrhage is detected. The adnexa are unremarkable. IMPRESSION: Single live IUP 6 weeks 5 days gestational age. Estimated date of confinement sonographically at 03/29/2021. Dictated by: Dictated on workstation # [id number]
== END ==
LOC: RAD 14:15
PROVIDERS: ATTEND Obstetrics & Gynecology
DX: N91.2 Amenorrhea, unspecified (principal); Z33.1 Pregnant state, incidental
CPT/HCPCS: 76801

== ENCOUNTER → 2020-11-26 | Outpatient (CLI) | payer OTHER, MEDICAID | LOC: CARD 10:30 | PROVIDERS: ATTEND Obstetrics & Gynecology | DX: Z87.59 Personal history of other complications of pregnancy, childbirth and the puerperium (principal) | CPT/HCPCS: 93005 ==

== ENCOUNTER → 2021-01-31 | Outpatient (CLI) | payer OTHER, MEDICAID | LOC: RAD 14:30 | PROVIDERS: ATTEND Obstetrics & Gynecology | DX: O09.92 Supervision of high risk pregnancy, unspecified, second trimester (principal); Z3A.00 Weeks of gestation of pregnancy not specified | CPT/HCPCS: 76805 ==

== ENCOUNTER 2021-03-26 06:21 | Inpatient (IN) | payer OTHER, MEDICAID ==
[2021-03-26] VITALS (26 sets, daily range): BP systolic 103–139; BP diastolic 56–88
[~2021-03-26] VITALS: Ht 157 cm; Wt 113.0 kg
[2021-03-26] MEDS ORDERED: MINERAL OIL CONCENTRATE 99.9% 15 ML UDC TOP PRN (06:45)
[2021-03-26 07:05] LABS: BASOPHILS % (AUTO) 0 % (0-10); EOSINOPHILS # (AUTO) 0.1 10^3/uL (0.0-0.3); EOSINOPHILS % (AUTO) 1 % (0-10); HEMATOCRIT 31 % (35-52); HEMOGLOBIN 9.7 g/dL (11.5-16.0); LYMPHOCYTES # (AUTO) 1.9 10^3/uL (1.0-4.0); LYMPHOCYTES % (AUTO) 20 % (12-44); MEAN CORPUSCULAR HEMOGLOBIN 25 pg (25-34); MEAN CORPUSCULAR HGB CONC 32 g/dL (32-36); MEAN CORPUSCULAR VOLUME 79 fL (80-99); MEAN PLATELET VOLUME 11.1 fL (9.0-12.2); MONOCYTES # (AUTO) 0.5 10^3/uL (0.0-1.0); MONOCYTES % (AUTO) 5 % (0-12); NEUTROPHILS % (AUTO) 73 % (42-75); PLATELET COUNT 243 10^3/uL (130-400); WHITE BLOOD COUNT 9.6 10^3/uL (4.3-11.0)
[2021-03-26] MEDS: D5 LR IV SOLUTION 1,000 ML IV SCH ×2 (07:19→15:06)
[2021-03-26] MEDS ORDERED: LACTATED RINGERS 1,000 ML IV ONE (07:45)
--- NOTE | 2021-03-26 07:51 | History & Physical-OB ---
OB - Chief Complaint & HPI Date/Time Date of Admission: Date of Admission: Mar 26, 2021 at 06:21 Date seen by a Provider: Mar 26, 2021 Chief Complaint/History OB-Reason for Admission/Chief: Induction of Labor Expected Date of Delivery: Mar 26, 2021 Gestational Age in Weeks: 40 Indication for induction: post dates, medical complication Allergies and Home Medications Allergies Coded Allergies: No Known Drug Allergies (Unverified , 09/25/15) Home Medications Acetaminophen 500 Mg Tablet, 1,000 MG PO Q8HR Prescribed by: PRESTON BOWIE on 10/04/191710 Ferrous Sulfate 325 Mg Tablet, 325 MG PO DAILY Prescribed by: PRESTON BOWIE on 10/04/191710 Ibuprofen 600 Mg Tablet, 600 MG PO Q6HR Prescribed by: PRESTON BOWIE on 10/04/191710 Vit/Iron Fumarate/FA 1 Each Tablet, 1 EACH PO DAILY, (Reported) OB - History Hx of Present Ultrasounds: Normal mid trimester US Obstetrical Complications: None Medical Complications: Other (rheumatoid arthritis in pregnacy, has been followed by MFM who recommended induction. Testing has been reassuring, also history of IUGR but not with this , history of preeclampsia but not with this ) Delivery History Hx Blood Disorders: No Adverse Rxn to Tranfusion: No Immunizations Hepatitis A: No Hepatitis B: No OB - Admission Exam Physical Exam Vitals: Vital Signs 03/26/21 06:40 Temp 37.1 Pulse 83 Resp 18 Pulse Ox 98 O2 Delivery Room Air Labs Laboratory Tests Test 03/26/21 06:50 Range/Units White Blood Count 9.6 4.3-11.0 10^3/uL Red Blood Count 3.86 3.80-5.11 10^6/uL Hemoglobin 9.7 L 11.5-16.0 g/dL Hematocrit 31 L 35-52 % Mean Corpuscular Volume 79 L 80-99 fL Mean Corpuscular Hemoglobin 25 25-34 pg Mean Corpuscular Hemoglobin Concent 32 32-36 g/dL Red Cell Distribution Width 14.6 H 10.0-14.5 % Platelet Count 243 130-400 10^3/uL Mean Platelet Volume 11.1 9.0-12.2 fL Immature Granulocyte % (Auto) 1 % Neutrophils (%) (Auto) 73 42-75 % Lymphocytes (%) (Auto) 20 12-44 % Monocytes (%) (Auto) 5 0-12 % Eosinophils (%) (Auto) 1 0-10 % Basophils (%) (Auto) 0 0-10 % Neutrophils # (Auto) 7.0 1.8-7.8 10^3/uL Lymphocytes # (Auto) 1.9 1.0-4.0 10^3/uL Monocytes # (Auto) 0.5 0.0-1.0 10^3/uL Eosinophils # (Auto) 0.1 0.0-0.3 10^3/uL Basophils # (Auto) 0.0 0.0-0.1 10^3/uL Immature Granulocyte # (Auto) 0.1 0.0-0.1 10^3/uL OB - Assessment/Plan/Diagnosis Assessment Assessment: induction of labor Admission Dx 1. 40 week gestation 2. rheumatoid arthritis in 3. history of preeclampsia 4. history of growth restriction PRESTON BOWIE DO Mar 26, 2021 07:51
[2021-03-26] MEDS ORDERED: BUTORPHANOL INJ 2 MG/ML (STADOL) VIAL IV PRN (11:15)
[2021-03-26] MEDS ORDERED: PROMETHAZINE INJ 25 MG/ML (PHENERGAN) AMP IVP PRN (11:15)
[2021-03-26] MEDS ORDERED: fentaNYL 2 mcg/ml BUPIVA 0.125 100 ML ONE (11:59)
[2021-03-26] MEDS ORDERED: EPIDURAL (fentaNYL 2 MCG/ML BUPIVA 0.125%)100 ML BAG EPI PRN (12:15)
[2021-03-26] MEDS ORDERED: LACTATED RINGERS 1,000 ML IV SCH (12:15)
[2021-03-26] MEDS ORDERED: NALOXONE 0.4 MG/ML 1 ML (NARCAN) VIAL IV PRN (12:15)
[2021-03-26] MEDS ORDERED: ONDANSETRON 4 MG/2 ML (SDV) Z0FRAN IV PRN (12:15)
[2021-03-26] MEDS ORDERED: diphenhydrAMINE 50 MG/ML INJ (BENADRYL) IV PRN (12:15)
[2021-03-26] MEDS ORDERED: BUPIVACAINE 0.25% 30 ML (SENSORCAINE) VIAL ONE (12:17)
[2021-03-26] MEDS ORDERED: fentaNYL INJ 100 MCG/2 ML AMP ONE (12:17)
[2021-03-26] MEDS ORDERED: CATHETER FLUSH 10 ML SYR IV SCH ×2 (14:00→22:00)
--- NOTE | 2021-03-26 14:50 | OB Labor & Delivery Record ---
Vag Delivery Note Vag Delivery Note Date of Delivery: 03/26/21 Preoperative Diagnosis: Anatoliy Clay is a (30 /Para 4/3 ,Gestational Age 40 weeks with rheumatoid arthritis, history of IUGR and history of preeclampsia Postoperative Diagnosis: Same Surgeon: PRESTON BOWIE Anesthesia: epidural Delivery Type: Findings: Viable female , apgars pending, weight pending Lacerations: none Intact placenta with 3 vessel cord. Nuchal cord x 1 delivered through, no body cord or shoulder dystocia Estimated Blood Loss: 100 ml Complications: None Condition: Stable Description of Procedure: The patient is a 30 year old female who presented for induction of labor. She was admitted and informed consent was obtained. Her labor course was remarkable for misoprostol x 1 then AROM She progressed to complete dilatation and began to push. She was then set up for delivery. The infant's head was delivered atraumatically in the RYAN position. The shoulders and remainder of the infant's body were then delivered without difficulty. Upon delivery, the head was held below the level of the perineum and the mouth and nares were bulb suctioned. The cord was doubly clamped and cut and the was handed off to the pediatric staff. An intact placenta with 3-vessel cord delivered via Vandana and there was found to be minimal bleeding.~ Vigorous fundal massage was performed and the fundus was found to be firm. IV oxytocin was given. Examination of the vagina and perineum revealed no lacerations. Following the delivery, sponge, instrument and needle counts were correct. Mom and baby were both in stable condition in the labor suite. Vitals - Labs Vital Signs - I&O Vital Signs Date Time Temp Pulse Resp B/P (MAP) Pulse Ox O2 Delivery O2 Flow Rate FiO2 03/26/21 13:25 73 18 113/59 (77) 99 Room Air 03/26/21 13:20 85 18 133/74 (93) 100 Room Air 03/26/21 13:15 76 18 119/60 (79) 99 Room Air 03/26/21 13:10 68 18 115/56 (75) 98 Room Air 03/26/21 13:07 66 18 117/58 (77) 98 Room Air 03/26/21 13:00 36.8 Room Air 03/26/21 12:58 70 18 116/69 (85) 98 Room Air 03/26/21 12:56 75 18 124/66 (85) 98 Room Air 03/26/21 12:53 77 18 121/71 (88) 98 Room Air 03/26/21 12:48 77 18 117/61 (79) 98 Room Air 03/26/21 12:45 Room Air 03/26/21 12:43 75 18 122/74 (90) 100 Room Air 03/26/21 12:38 79 18 118/75 (89) 100 Room Air 03/26/21 12:30 99 18 124/67 (86) 100 Room Air 03/26/21 12:28 94 18 139/88 (105) 100 Room Air 03/26/21 11:30 73 18 129/81 (97) Room Air 03/26/21 10:30 36.8 77 18 123/68 (86) Room Air 03/26/21 08:30 77 18 127/76 (93) Room Air 03/26/21 07:30 81 18 123/73 (90) Room Air 03/26/21 06:40 37.1 83 18 98 Room Air Labs Laboratory Tests 03/26/21 06:50: White Blood Count 9.6, Red Blood Count 3.86, Hemoglobin 9.7L, Hematocrit 31L, Mean Corpuscular Volume 79L, Mean Corpuscular Hemoglobin 25, Mean Corpuscular Hemoglobin Concent 32, Red Cell Distribution Width 14.6H, Platelet Count 243, Mean Platelet Volume 11.1, Immature Granulocyte % (Auto) 1, Neutrophils (%) (Auto) 73, Lymphocytes (%) (Auto) 20, Monocytes (%) (Auto) 5, Eosinophils (%) ( Auto) 1, Basophils (%) (Auto) 0, Neutrophils # (Auto) 7.0, Lymphocytes # (Auto) 1.9, Monocytes # (Auto) 0.5, Eosinophils # (Auto) 0.1, Basophils # (Auto) 0.0, Immature Granulocyte # (Auto) 0.1 PRESTON BOWIE DO Mar 26, 2021 14:50
[2021-03-26] MEDS ORDERED: OXYTOCIN PRE-MIX DRIP 500 ML IV SCH (15:00)
[2021-03-26] MEDS ORDERED: WITCH HAZEL(TUCKS) 40 EA JAR TOP PRN (15:00)
[2021-03-26] MEDS ORDERED: MEASLES,MUMPS,RUBELLA 1 EA INJ SQ ONE (15:00)
[2021-03-26] MEDS ORDERED: TETANUS,DIPTH,PERTUSS P/F (BOOSTRIX) 0.5 ML VIAL IM ONE (15:00)
[2021-03-26] MEDS ORDERED: DIBUCAINE 1% OINTMENT 30 GM TUBE TOP PRN (15:00)
[2021-03-26] MEDS ORDERED: BENZOCAINE/MENTHOL (DERMOPLAST) 56 ML CAN TP PRN (15:00)
[2021-03-26] MEDS: IBUPROFEN 600 MG (MOTRIN) TAB PO SCH ×2 (15:11→21:04)
[2021-03-26] MEDS ORDERED: ACETAMINOPHEN 500 MG TAB (TYLENOL) ONE (19:00)
[2021-03-26] MEDS: ACETAMINOPHEN 500 MG TAB (TYLENOL) PO SCH (19:02)
[2021-03-26] MEDS ORDERED: HYDROXYCHLOROQUINE 200 MG (PLAQUENIL) TAB PO SCH (20:00)
[2021-03-26] MEDS: DOCUSATE SODIUM 100 MG (COLACE) CAP PO SCH (21:03)
[2021-03-27 03:00] VITALS: BP 135/81
[2021-03-27] MEDS: IBUPROFEN 600 MG (MOTRIN) TAB PO SCH ×3 (03:03→14:58)
[2021-03-27 05:49] LABS: BASOPHILS % (AUTO) 0 % (0-10); EOSINOPHILS # (AUTO) 0.2 10^3/uL (0.0-0.3); EOSINOPHILS % (AUTO) 1 % (0-10); HEMATOCRIT 31 % (35-52); HEMOGLOBIN 9.2 g/dL (11.5-16.0); LYMPHOCYTES # (AUTO) 2.1 10^3/uL (1.0-4.0); LYMPHOCYTES % (AUTO) 20 % (12-44); MEAN CORPUSCULAR HEMOGLOBIN 25 pg (25-34); MEAN CORPUSCULAR HGB CONC 30 g/dL (32-36); MEAN CORPUSCULAR VOLUME 82 fL (80-99); MEAN PLATELET VOLUME 10.9 fL (9.0-12.2); MONOCYTES # (AUTO) 0.7 10^3/uL (0.0-1.0); MONOCYTES % (AUTO) 6 % (0-12); NEUTROPHILS # (AUTO) 7.4 10^3/uL (1.8-7.8); NEUTROPHILS % (AUTO) 71 % (42-75); PLATELET COUNT 187 10^3/uL (130-400); WHITE BLOOD COUNT 10.4 10^3/uL (4.3-11.0)
[2021-03-27] MEDS: ACETAMINOPHEN 500 MG TAB (TYLENOL) PO SCH ×2 (06:07→14:58)
[2021-03-27] MEDS ORDERED: PRENATAL VITAMIN 1 EA TAB PO SCH (07:00)
--- NOTE | 2021-03-27 08:09 | Postpartum Progress Note ---
Note Note Day # 1 s/p Subjective: Patient is without complaints. Ambulating, voiding. Tolerating a regular diet w ithout nausea or vomiting. Normal lochia. Pain is well controlled with oral pain medications. breast feeding. Objective: 03/26/21 03/27/21 21:15 03:00 Temp 37.6 37.6 Pulse 95 95 Resp 20 20 B/P (MAP) 135/81 (99) 135/81 (99) Pulse Ox 96 96 O2 Delivery Room Air Room Air Laboratory Tests Test 03/27/21 05:13 Range/Units White Blood Count 10.4 4.3-11.0 10^3/uL Red Blood Count 3.73 L 3.80-5.11 10^6/uL Hemoglobin 9.2 L 11.5-16.0 g/dL Hematocrit 31 L 35-52 % Mean Corpuscular Volume 82 80-99 fL Mean Corpuscular Hemoglobin 25 25-34 pg Mean Corpuscular Hemoglobin Concent 30 L 32-36 g/dL Red Cell Distribution Width 14.6 H 10.0-14.5 % Platelet Count 187 130-400 10^3/uL Mean Platelet Volume 10.9 9.0-12.2 fL Immature Granulocyte % (Auto) 1 % Neutrophils (%) (Auto) 71 42-75 % Lymphocytes (%) (Auto) 20 12-44 % Monocytes (%) (Auto) 6 0-12 % Eosinophils (%) (Auto) 1 0-10 % Basophils (%) (Auto) 0 0-10 % Neutrophils # (Auto) 7.4 1.8-7.8 10^3/uL Lymphocytes # (Auto) 2.1 1.0-4.0 10^3/uL Monocytes # (Auto) 0.7 0.0-1.0 10^3/uL Eosinophils # (Auto) 0.2 0.0-0.3 10^3/uL Basophils # (Auto) 0.0 0.0-0.1 10^3/uL Immature Granulocyte # (Auto) 0.1 0.0-0.1 10^3/uL Physical Exam: General - Alert and oriented, no apparent distress Abdomen - Soft, appropriately tender to palpation, non-distended, fundus firm at umbilicus Extremities - no edema, negative Jeanie's bilaterally Assessment: 1. post- day # 1, status post spontaneous vaginal delivery. Recovering well, hemodynamically stable Plan: Routine care. Encourage breast feeding. Encourage ambulation. Ferrous sulfate supplementation. Plan for discharge tomorrow Vitals - Labs Vital Signs - I&O Vital Signs Date Time Temp Pulse Resp B/P (MAP) Pulse Ox O2 Delivery O2 Flow Rate FiO2 03/27/21 03:00 37.6 95 20 135/81 (99) 96 Room Air 03/26/21 21:15 37.6 95 20 135/81 (99) 96 Room Air 03/26/21 15:33 68 18 116/61 (79) Room Air 03/26/21 15:18 37.1 84 18 116/58 (77) Room Air 03/26/21 15:03 78 18 128/74 (92) 100 Room Air 03/26/21 14:47 37.0 83 18 119/64 (82) 99 Room Air 03/26/21 14:30 109 18 100 Room Air 03/26/21 14:15 100 18 133/63 (86) 100 Room Air 03/26/21 14:00 75 18 123/74 (90) 100 Room Air 03/26/21 13:45 78 18 116/66 (83) 100 Room Air 03/26/21 13:25 73 18 113/59 (77) 99 Room Air 03/26/21 13:20 85 18 133/74 (93) 100 Room Air 03/26/21 13:15 76 18 119/60 (79) 99 Room Air 03/26/21 13:10 68 18 115/56 (75) 98 Room Air 03/26/21 13:07 66 18 117/58 (77) 98 Room Air 03/26/21 13:00 36.8 Room Air 03/26/21 12:58 70 18 116/69 (85) 98 Room Air 03/26/21 12:56 75 18 124/66 (85) 98 Room Air 03/26/21 12:53 77 18 121/71 (88) 98 Room Air 03/26/21 12:48 77 18 117/61 (79) 98 Room Air 03/26/21 12:45 Room Air 03/26/21 12:43 75 18 122/74 (90) 100 Room Air 03/26/21 12:38 79 18 118/75 (89) 100 Room Air 03/26/21 12:30 99 18 124/67 (86) 100 Room Air 03/26/21 12:28 94 18 139/88 (105) 100 Room Air 03/26/21 11:30 73 18 129/81 (97) Room Air 03/26/21 10:30 36.8 77 18 123/68 (86) Room Air 03/26/21 08:30 77 18 127/76 (93) Room Air I & O 03/27/21 07:00 Intake Total 3400 ml Balance 3400 ml Labs Laboratory Tests 03/27/21 05:13: White Blood Count 10.4, Red Blood Count 3.73L, Hemoglobin 9.2L, Hematocrit 31L, Mean Corpuscular Volume 82, Mean Corpuscular Hemoglobin 25, Mean Corpuscular Hemoglobin Concent 30L, Red Cell Distribution Width 14.6H, Platelet Count 187, Mean Platelet Volume 10.9, Immature Granulocyte % (Auto) 1, Neutrophils (%) (Auto) 71, Lymphocytes (%) (Auto) 20, Monocytes (%) (Auto) 6, Eosinophils (%) (Auto) 1, Basophils (%) (Auto) 0, Neutrophils # (Auto) 7.4, Lymphocytes # (Auto) 2.1, Monocytes # (Auto) 0.7, Eosinophils # (Auto) 0.2, Basophils # (Auto) 0.0, Immature Granulocyte # (Auto) 0.1 PRESTON BOWIE DO Mar 27, 2021 08:09
[2021-03-27] MEDS: DOCUSATE SODIUM 100 MG (COLACE) CAP PO SCH (08:52)
[2021-03-27 08:55] VITALS: BP 122/81
[2021-03-27] MEDS ORDERED: FERROUS SULF 325 MG (IRON) TAB PO SCH (09:00)
--- NOTE | 2021-03-27 09:32 | Anesthesia-Regional Post-Op ---
Regional Patient Condition Mental Status: Alert, Oriented x3 Circulation: Same as Pre-Op Headache: Absent Sensation: Full Recovery Motor Block: Absent Post Op Complications Complications None Follow Up Care/Instructions Patient Instructions None needed. Anesthesia/Patient Condition Patient is doing well, no complaints, stable vital signs, no apparent adverse anesthesia problems. No complications reported per nursing. RENATA CORDOVA CRNA Mar 27, 2021 09:32
[2021-03-27] MEDS ORDERED: IBUP-844 PO (13:26)
[2021-03-27] MEDS ORDERED: ACET-93 PO (13:26)
--- NOTE | 2021-03-27 13:27 | Discharge Inst-Women's Service ---
Discharge Inst-Women's Serv Depart Medication/Instructions New, Converted or Re-Newed RX: Transmitted to Pharmacy Final Diagnosis vaginal delivery anemia rheumatoid arthritis Problems Reviewed?: Yes Consults/Follow Up Additional Follow Up: Yes (6 week post ) Activity Activity: Activity as Tolerated Driving Instructions: You May Drive NO SMOKING: NO SMOKING Nothing Inside Vagina: No Douching, No [place], No Tampons Diet Discharge Diet: No Restrictions Symptoms to Report to : Bleeding Excessive, Fever Over 101 Degrees F, Vaginal Bleeding Increase, Cramps in Feet or Legs, Vaginal Discharge Foul For Any Problems or Questions: Contact Your Physician PRESTON BOWIE DO Mar 27, 2021 13:27
[2021-03-27 15:00] VITALS: BP 122/62
== END 2021-03-27 16:40 | disposition home or self-care (01) | DRG 807 ==
LOC: LDRP 06:21
PROVIDERS: ADMIT Obstetrics & Gynecology; ATTEND Obstetrics & Gynecology
PROC: 10E0XZZ Delivery of Products of Conception, External Approach (ICD-10-PCS; principal; 2021-03-26)
PROC: 3E0DXGC Introduction of Other Therapeutic Substance into Mouth and Pharynx, External Approach (ICD-10-PCS; 2021-03-26)
DX: O48.0 Post-term pregnancy (principal); Z37.0 Single live birth; O26.893 Other specified pregnancy related conditions, third trimester; M06.9 Rheumatoid arthritis, unspecified; O69.81X0 Labor and delivery complicated by cord around neck, without compression, not applicable or unspecified; O99.02 Anemia complicating childbirth; D64.9 Anemia, unspecified; Z3A.40 40 weeks gestation of pregnancy; Z79.1 Long term (current) use of non-steroidal anti-inflammatories (NSAID)
CPT/HCPCS: 36415; 83033; 85025; 86850; 86900; 86901

== ENCOUNTER 2023-01-18 07:27 | Emergency (ER) | payer OTHER, MEDICAID ==
[~2023-01-18] VITALS: Ht 157.5 cm; Wt 110.6 kg
--- NOTE | 2023-01-18 08:32 | ED Integumentary General ---
General Chief Complaint: Skin/Wound Problems Stated Complaint: SHINGLES - SWOLLEN RIGHT EYE Nursing Triage Note: PT AMB TO [facility] 8 WITH COMPLAINT OF SHINGLES ON RIGHT EYE. WENT TO URGENT CARE ON THURSDAY AND STARTED ON ACYCLOVIR. STATES SWELLING OF EYE STARTED YESTERDAY. Source: patient Exam Limitations: no limitations History of Present Illness Date Seen by Provider: Jan 18, 2023 Time Seen by Provider: 08:11 Initial Comments Here with report of shingles on the right side of the face and forehead including scalp. Onset Thursday. Seen at urgent care and initiated on v alacyclovir 1000 mg 3 times daily which she is taking. She woke up this morning and noted that the right eyelid was swollen and she was having some right ear pain. She is not having pain of the eye and no vision problems at this point. Taking meds as directed. Denies other concerns Timing/Duration: getting worse, other (3 days) Severity: moderate Location: face Possible Cause: other (Shingles outbreak) Associated Symptoms: edema, rash, swelling/mass/lumps Allergies and Home Medications Allergies Coded Allergies: No Known Drug Allergies (Unverified , 09/25/15) Patient Home Medication List Home Medication List Reviewed: Yes Acetaminophen (Acetaminophen) 500 Mg Tablet, 1,000 MG PO Q8HR Prescribed by: PRESTON BOWIE on 03/27/21 1326 Ferrous Sulfate (Ferrous Sulfate) 325 Mg Tablet, 325 MG PO DAILY Prescribed by: PRESTON BOWIE on 10/04/19 1711 Ganciclovir (Zirgan) 0.15 % Gel..gram., 1 DROP OP TID Prescribed by: JANETTE MUSE on 01/18/23 0853 Ibuprofen (Ibu) 600 Mg Tablet, 600 MG PO Q6HR Prescribed by: PRESTON BOWIE on 03/27/21 1326 Vit/Iron Fumarate/FA ( Vitamins Tablet) 1 Each Tablet, 1 EACH PO DAILY, (Reported) Entered as Reported by: REGINE HERNANDEZ on 09/25/151816 Review of Systems Review of Systems Constitutional: see HPI; No chills, No fever EENTM: see HPI, ear pain; No eye pain Respiratory: No cough, No short of breath Cardiovascular: no symptoms reported Gastrointestinal: no symptoms reported Skin: see HPI Past Mwzmbba-Hqhqyi-Wdqijp Hx Patient Social History Tobacco Use?: No Use of E-Cig and/or Vaping dev: No Substance use?: No Alcohol Use?: No Pt feels they are or have been: No Immunizations Up To Date Tetanus Booster (TDap): Less than 5yrs PED Vaccines UTD: Yes Seasonal Allergies Seasonal Allergies: No Past Medical History Surgeries: Yes (Novi Teeth) Respiratory: No Cardiac: No Neurological: No Reproductive Disorders: No Female Reproductive Disorders: Denies Sexually Transmitted Disease: No HIV/AIDS: No Genitourinary: No Gastrointestinal: No Musculoskeletal: No Endocrine: No HEENT: No Loss of Vision: Denies Hearing Impairment: Denies Cancer: No Psychosocial: No Integumentary: No Blood Disorders: Yes (Anemia) Adverse Reaction/Blood Tranf: No Family Medical History Reviewed Nursing Family Hx FH: prostate cancer 19 FATHER Hypertension (Father) 19 FATHER Hypothyroidism 19 MOTHER Physical Exam Vital Signs Vital Signs - First Documented 01/18/23 07:40 Temp 36.6 Pulse 85 Resp 20 B/P (MAP) 138/95 (109) Pulse Ox 98 O2 Delivery Room Air Capillary Refill : Less Than 3 Seconds General Appearance: WD/WN, no apparent distress HEENT: PERRL/EOMI, TMs normal, pharynx normal, other (Does have a rash with lesions consistent with shingles to the forehead and scalp on the right side between ear and midline upper scalp and down to the level of the eyebrow. There is no lesions on the nose or the ear. Right eyelid is swollen but without lesions. Conjunctive of the right eye is white and clear without obvious lesions or pain.) Cardiovascular: regular rate, rhythm, no murmur Respiratory: lungs clear, normal breath sounds Neurologic/Psychiatric: alert, oriented x 3 Skin: warm/dry, rash (To right upper face as described above.) Progress/Results/Core Measures Results/Orders Vital Signs/I&O 01/18/23 07:40 Temp 36.6 Pulse 85 Resp 20 B/P (MAP) 138/95 (109) Pulse Ox 98 O2 Delivery Room Air Blood Pressure Mean: 109 Progress Progress Note : Progress Note Seen and evaluated. Patient does have obvious zoster lesions to the right upper face. It does not seem to involve the eye. Question would be does this patient require IV antiviral. I did discuss the case with Dr. Smith, hospitalist on- call, to discuss admission as this is considered. Patient does have some immunocompromise as she has's rheumatoid arthritis and is on hydroxychloroquine but is not having actual eye symptoms and it seems to be more skin around the eye. He would go either way but suggested consult with eye team. I did make contact with Dr. Sebastian, optometry on-call, and discussed the case including presenting symptoms and findings. Given that she has no current eye symptoms, outpatient therapy with continuing the valacyclovir as previously prescribed but adding Zirgan drops would be appropriate with close follow-up. He is requesting that the patient follow-up in the clinic tomorrow. She can call the office in the morning for appointment. I did discuss this with the patient and she is in agreement. I did send prescription to [facility] in [place]. If they do not have the Zirgan then we may switch to Viroptic. No indication for admission currently. Discharged home with return precautions. Patient verbalized understanding instructions and agreement with plan. Departure Impression Primary Impression: Shingles Qualified Codes: B02.8 - Zoster with other complications Disposition: HOME, SELF-CARE Condition: Stable Departure-Patient Inst. Decision time for Depature: 08:54 Referrals: [facility] OD,LOCAL PHYSICIAN (PCP) Primary Care Physician Patient Instructions: Shingemini (DC) Add. Discharge Instructions: All discharge instructions reviewed with patient and/or family. Voiced under standing. You will follow-up with the [facility] eye clinic. Call the office in the morning for appointment. Let them know that you were seen in the emergency department and the case was discussed with Dr. Sebatsian and he wanted to follow-up MELY. Return for worse pain, swelling, eye pain, vision problems or other concerns as needed. Continue other medications as previously prescribed. Use eyedrops as directed. You may continue Tylenol/acetaminophen and or ibuprofen per package directions for pain. You may use cool compresses to the site to reduce pain and swelling. Scripts Ganciclovir (Zirgan) 0.15 % Gel..gram. 1 DROP OP TID, #5 GM to right eye Prov: JANETTE MUSE MD 01/18/23 Copy Copies To 1: MARIE SEBASTIAN OD, TIMOTHY D MD Jan 18, 2023 08:32
[2023-01-18] MEDS ORDERED: GANC5GEL2 OP ×2 (08:40→08:53)
[2023-01-18 08:59] VITALS: BP 125/88
== END 2023-01-18 09:00 | disposition home or self-care (01) ==
LOC: EDUNIT# 07:27 → ER 07:28
DX: B02.9 Zoster without complications (principal)
CPT/HCPCS: 99281